=== PATIENT | female | born 1935 | race Caucasian/White ===

== ENCOUNTER 2016-10-26 10:58 | Observation (INO) | payer MEDICARE, OTHER ==
[2016-10-26] VITALS (9 sets, daily range): BP systolic 107–143; BP diastolic 57–89; PULSE 57–95; RESP 12–20; O2SAT 93–100
[~2016-10-26] VITALS: Ht 170.2 cm; Wt 99.1 kg
[~2016-10-26 10:58] MED LIST: ASPI-973 PO; DONE5TAB30 PO; FUR20 PO; LOSA25TA21 PO; MAGN400T39 PO; METO-272 PO; METO25TA99 PO; PANT40TA3 PO; POTA20TA16 PO; SIMV40TA5 PO
--- NOTE | 2016-10-26 10:59 | ED.REPORT ---
HPI-General Illness Date of Service Oct 26, 2016 ED Provider: Dr. Orantes Pt is an 81 year old female with a history of congestive heart failure, dementia , hypertension presents to the ED via EMS with concerns for weakness and general malaise. Patient has been living at home with granddaughter for the past few days who endorses that patient has an increase in generalized weakness with a reported productive cough 2 days and diarrhea 1 day. Today patient was sitting in chair when she reported to have "stopped breathing" patient's daughter called 911 and was able to arouse patient with a SLAP to the face and other stimuli. Patient currently complains of "just does not feel well" endorses a headache denies visual changes. Endorses nausea denies vomiting. Patient is not up-to-date on seasonal influenza vaccinations. Nursing Notes Stated Complaint: WEAKNESS Chief Complaint: Weakness Nursing Notes Reviewed: Yes Allergies: Coded Allergies: shellfish derived (Verified Allergy, Severe, 10/26/16) Penicillins (Verified Allergy, Unknown, 10/01/15) clarithromycin (Verified Allergy, Unknown, 10/01/15) codeine (Verified Allergy, Unknown, 10/01/15) iodine (Verified Allergy, Unknown, 10/01/15) Scheduled Aspirin (Aspirin) 81 Mg Tablet 81 MG PO DAILY Carvedilol (Carvedilol) 6.25 Mg Tablet 6.25 MG PO BID Donepezil (Donepezil) 5 Mg Tablet 5 MG PO HS Furosemide (Furosemide) 20 Mg Tab 20 MG PO DAILY Losartan Potassium (Losartan Potassium) 25 Mg Tablet 25 MG PO DAILY Magnesium Oxide (Magnesium) 250 Mg Tablet 250 MG PO HS Pantoprazole DR (Pantoprazole DR) 40 Mg Tablet.dr 40 MG PO DAILY Potassium Gluconate (Potassium) 99 Mg Tablet 99 MG PO DAILY Simvastatin (Simvastatin) 40 Mg Tablet 40 MG PO HS General Time Seen by MD: 10:59 Chief Complaint Weakness Hx Obtained From: Patient, EMS Arrived By: Ambulance Sudden in Onset?: Yes Symptom Duration: Since onset Similar Sx Previous: Yes Past Medical History Past Medical History Alzheimer's Hypertension Cardiomyopathy Lymphoma ? History of CVA Past Surgical History Bilateral knee replacement Bilateral hip replacement Smoking History Unknown if Ever Smoker Social History Alcohol Use: Denies alcohol use Other Social History: Lives in [facility] Ambulatory Status Independent Review of Systems Unable to Obtain ROS Mental status (patient lethargic expresses some difficulty in appropriately answering questions.) Full Review of Systems Constitutional: Reports: Fever (reported home fevers though no temperature taken), Denies: Chills Eyes: Denies: Blurred bilateral, Photophobia, Visual loss bilateral Respiratory: Reports: Non-productive cough, Shortness of breath, Wheezing, Denies: Dyspnea on exertion, Hemoptysis GI: Reports: Diarrhea, Nausea, Denies: Abdominal pain, Vomiting Neurologic: Denies: Abnormal movement, Bladder dysfunction, Bowel dysfunction, Change LOC, Confusion, Dizziness, Focal weakness, Headache Physical Exam General: Mild distress, well-developed, well-nourished, somewhat lethargic and slow to respond to questions HEENT: Normocephalic, atraumatic. External ears without defect. Pupils - patient has macular degeneration. Anicteric sclerae, moist conjunctivae, and no lid lag. Oropharynx free of erythema and cobble stoning with moist mucosa. Edentulous, upper bridge dentures in place. Neck: Supple with full range of motion. No jugular venous distension. Cardiovascular: Regular rate and rhythm with no murmurs, rubs, or gallops appreciated Pulmonary: Audible expiratory wheezes, upper anterior lung mulligan. No rhonchi Normal respiratory effort with no use of accessory muscles. Abdomen: Bowel tones present. Soft, nontender, nondistended. Extremities: No clubbing, cyanosis, edema, or lymphadenopathy appreciated. Skin: Normal temperature, normal turgor, and texture. Neurological: Cranial nerves grossly intact. Psychiatric: Normal mood and affect. Alert and oriented to person, place, and time, slow to respond to questions Vital Signs Vital Signs Date Time Temp Pulse Resp B/P Pulse Ox O2 Delivery O2 Flow Rate FiO2 10/26/16 14:30 74 14 123/89 100 Nasal Cannula 2 10/26/16 13:08 69 12 100 Nasal Cannula 2 10/26/16 12:30 63 15 107/57 99 Nasal Cannula 2 10/26/16 11:18 36.5 57 20 129/68 93 Room Air Initial VS: Reviewed Interpretation & Diagnostics X-RAY CHEST ONE VIEW, PORTABLE IMPRESSION: No acute cardiopulmonary disease. Dictated by: James Maciel M.D. on 10/26/2016 at 11:36 Lab Results Interpretation Result Diagram: 10/26/16 1100 10/26/16 1100 Test 10/26/16 11:00 10/26/16 11:19 White Blood Count 8.6th/mm3 (3.8-10.1) Red Blood Count 5.03mil/mm3 (3.90-5.20) Hemoglobin 13.8g/dL (12.0-15.6) Hematocrit 42.8% (35.0-46.0) Mean Corpuscular Volume 85.1fL (81-100) Mean Corpuscular Hemoglobin 27.4pg (27.0-35.0) Mean Corpuscular Hemoglobin Concent 32.2% (32.0-37.0) Red Cell Distribution Width 14.4% (12.3-15.4) Platelet Count 213bil/L (150-400) Neutrophils (%) (Auto) 72.1% (40-74) Lymphocytes (%) (Auto) 15.9% (14-46) Monocytes (%) (Auto) 9.5% (4-12) Eosinophils (%) (Auto) 2.0% (0-5) Basophils (%) (Auto) 0.3% (0-3) Sodium Level 138mEq/L (134-144) Potassium Level 3.7mEq/L (3.5-5.2) Chloride Level 99mEq/L (97-108) Carbon Dioxide Level 28mmol/L (18-29) Blood Urea Nitrogen 13mg/dL (8-27) Creatinine 1.46mg/dL (0.57-1.00) Estimat Glomerular Filtration Rate 49mL/min (>59) Glucose Level 149mg/dL (60-99) Calcium Level 8.6mg/dL (8.5-10.1) Total Bilirubin 0.6mg/dL (0.0-1.2) Aspartate Amino Transf (AST/SGOT) 11U/L (0-50) Alanine Aminotransferase (ALT/SGPT) 6U/L (0-32) Alkaline Phosphatase 84U/L (25-165) Troponin T < 0.010ug/L (0.0-0.011) Total Protein 6.3g/dL (6.4-8.4) Albumin 3.2g/dL (3.4-5.0) Procalcitonin 0.07ng/mL (See Comment) Urine Color Dark yellow (YELLOW) Urine Appearance Clear (CLEAR,HAZY) Urine pH 7.0 (5.0-8.0) Urine Specific [place] 1.026 (1.003-1.035) Urine Protein 30mg/dL (NEG,TRACE) Urine Glucose (UA) Negativemg/dL (NEGATIVE) Urine Ketones Negativemg/dL (NEGATIVE) Urine Occult Blood Negative (NEGATIVE) Urine Nitrite Negative (NEGATIVE) Urine Bilirubin Negative (NEGATIVE) Urine Urobilinogen Normalmg/dL (NORMAL) Urine Leukocyte Esterase Negative (NEGATIVE) Urine RBC 0-2/hpf (0-2) Urine WBC 0-5/hpf (0-5) Urine Epithelial Cells Moderate/hpf (NONE-MOD) Urine Crystals None seen (NONE SEEN) Urine Bacteria Few/hpf (NONE-FEW) Urine Hyaline Casts None/lpf (NONE) Urine Granular Casts None seen (NONE SEEN) Urine Waxy Casts None seen (NONE SEEN) Urine Red Blood Cell Casts None seen (NONE SEEN) Urine White Blood Cell Casts None seen (NONE SEEN) Urine Mucus None seen (None Seen) Urine Trichomonas None seen (NONE SEEN) Urine Yeast None (NONE SEEN) Urinalysis Comment None Urine Culture Reflexed Not indicated ECG Interpretation ECG Interpretation: Sinus rhythm, APC, left bundle branch block - consistent with previous EKG Interpreted by: ED physician (resident physician) Re-Eval/Medical Decision Med Decision/Clinical Course Attending note: 81-year-old female with congestive heart failure with known systolic dysfunction since after a syncopal episode while at rest. This is concerning for cardiogenic syncope. Patient will be admitted. Based on history obtained through patient's family as well as physical examination patient's current condition is most likely due to an episode of cardiogenic ectopy. Patient does have diagnosed congestive heart failure, EKG and EGD showed PAC. The story fits that patient was sitting in chair when she was reported to be apneic suffering from respiratory arrest. The medics reportedly found patient's blood pressure to be systolic 60 which resolved to normotension after IV fluid administration. EKG showed sinus rhythm with left bundle branch block which is seen on prior EKG from 2015. Though EKG did show atrial premature complex. Troponin negative. Patient does have audible wheezes and there was some concern of pneumonia, flu swab was negative. Chest x-ray read showed no acute cardiopulmonary process, though there does appear to be some degree of pulmonary edema. White blood cell count unremarkable. Pro-Pending at time of dictation. Patient requested to be admitted for observational status and cardiac monitoring. CODE STATUS discussed with family, patient's daughter who is POA endorses the patient is a DO NOT INTUBATE though it remains unclear at this point if patient is a DO NOT RESUSCITATE. She did produce documentation not in the form of a POLST that states patient wishes to not receive artificial nutrition or artificial hydration. Discharge & Departure Shift Change Sign-Out Patient Care Transferred: Yes Discussed Complaint(s): Yes Laboratory Evaluation: Lab evaluation discussed Imaging Studies: Imaging discussed Response to Therapy: Improved Primary Impression: Syncope Syncope type: unspecified Qualified Code: R55 - Syncope and collapse Discharge Condition All VS Reviewed: Yes Condition: Improved Referrals: NOPCP (PCP) Attending Statement The patient was seen and examined together with Dr. Victoria on 10/26/16 and I have added additional information to the note above. Simone Orantes DO Oct 26, 2016 10:59 ESTELA BHAKTA Oct 26, 2016 11:01 KRYSTYNA VICTORIA DO Oct 26, 2016 11:45
[2016-10-26] MEDS ORDERED: 0.9% Sodium Chloride 1,000 ML IV ONE (11:09)
[2016-10-26 11:17] LABS: BASOPHILS % (AUTO) 0.3 % (0-3); MONOCYTES % (AUTO) 9.5 % (4-12); Mean Corpuscular Hemoglobin 27.4 pg (27.0-35.0); Mean Corpuscular Volume 85.1 fL (81-100); NEUTROPHILS % (AUTO) 72.1 % (40-74); Platelet Count 213 bil/L (150-400)
[2016-10-26] MEDS ORDERED: CARV6.252 PO (11:32)
[2016-10-26] MEDS ORDERED: POTA99TA21 PO (11:32)
[2016-10-26] MEDS ORDERED: MAGN250T29 PO (11:32)
--- NOTE | 2016-10-26 11:38 | DRSVH ---
PROCEDURE: X-RAY CHEST ONE VIEW, PORTABLE ([id number]) INDICATIONS: 81 year-old female with syncope. TECHNIQUE: One view of the chest was acquired. COMPARISON: [facility], CR, XR CHEST 2V AP/PA AND LAT, 07/16/2016, 4:09 PM. [facility], CR, CHEST 1VW (PORTABLE), 08/29/2015, 22:34. [facility], , CHEST 2VW, 12/30/2009, 10:15. FINDINGS: Surgical changes and devices: None. Lungs and pleura: No pleural effusions or pneumothorax. Lungs are clear except for linear right ian g base scarring. Mediastinum: Mediastinal contours appear normal. Heart size is normal. There is aortic atheroscler osis. Bones and chest wall: No suspicious bony lesions. Overlying soft tissues appear unremarkable. IMPRESSION: No acute cardiopulmonary disease. Dictated by: James Maciel M.D. on 10/26/2016 at 11:36 Approved by: James Maciel M.D. on 10/26/2016 at 11:36
[2016-10-26 11:57] LABS: APPEARANCE,URINE CLEAR (CLEAR,HAZY); COLOR,URINE DARK YELLOW (YELLOW); OCCULT BLOOD,URINE NEGATIVE (NEGATIVE); UROBILINOGEN,URINE NORMAL (NORMAL)
[2016-10-26] MEDS ORDERED: Albuterol 2.5 mg/3 mL Inhalation Solution NEB ONE (12:10)
[2016-10-26] MEDS ORDERED: Alum-Mag Hydrox-Simeth 30 mL Suspension PO PRN (14:05)
[2016-10-26] MEDS ORDERED: Polyethylene Glycol (PEG) 17 Gm Powder PO PRN (14:05)
[2016-10-26] MEDS ORDERED: Ondansetron 2 mg/mL 2 mL Inj IVPUSH PRN (14:05)
[2016-10-26] MEDS ORDERED: Influenza (Adult) Vaccine 0.5 mL Syringe IM ONE (15:05)
[2016-10-26] MEDS: 0.9% Sodium Chloride 1,000 ML IV SCH (17:53)
--- NOTE | 2016-10-26 18:13 | PCM.HPMED ---
Subjective Date of Service Oct 26, 2016 Primary Provider: Admitting Physician: Robert Banegas MD Primary Care Physician: Irena Bach MD Attending Physician: Robert Banegas MD Admit Status: From the Emergency Department, 23-Hour Observation, Admit to Red Team Chief Complaint: Syncope/4h History of Present Illness: Carmita is an 81-year-old lady with past medical history of systolic CHF, Alzheimer dementia, hypertension, history of lymphoma was brought in by EMS for syncope. Patient has been having dry cough for the past 2 days with decreased by mouth intake. She was sitting in chair at home. Her usknwzfg-dd-qel saw her stopping breathing and fainting. She lowered her to the floor, shook her and slapped her and shew woke up . Episode of fainting lasted for 30 seconds. EMS arrived in 5 minutes, initial systolic blood pressure by EMS reportedly 60. IV fluids started and brought in She has history of systolic CHF on furosemide 20 mg daily, losartan 25 mg daily , carvedilol 6.5 mg twice a day. She had recent echocardiogram and was told by phone that her systolic function has improved from 25 to 55% . Tkvedkvc-ev-zqk states there was some medication dose adjustment but not sure what it was. Patient has an appointment to see her camp head counselor on November 24. Patient denies feeling lightheaded before fainting. Admits she had less by mouth intake for the last 2 days due to dry cough. Mlnsqyrf-yf-teu states patient has been having low diastolic blood pressure in the last few weeks. BP Numbers like 120/40. no Known history of aortic valve issue Denies fever ED course: Initial BP 107/57, HR 57, saturating 93% on room air, afebrile Labs are remarkable, creatinine 1.46 ,at baseline. Troponin negative, EKG unremarkable, pro-calcitonin negative, urine specific gravity 1.026, influenza negative Review of Systems: Comprehensive review of systems performed, pertinent positives and negatives included in history of present illness Allergies Coded Allergies: shellfish derived (Verified Allergy, Severe, 10/26/16) Penicillins (Verified Allergy, Unknown, 10/01/15) clarithromycin (Verified Allergy, Unknown, 10/01/15) codeine (Verified Allergy, Unknown, 10/01/15) iodine (Verified Allergy, Unknown, 10/01/15) Home Medications Potassium 99 mg by mouth daily Aspirin 81 mg by mouth daily Pantoprazole 40 mg by mouth daily Losartan 25 mg by mouth daily Coreg 6.5 mg by mouth twice daily Furosemide 20 mg by mouth daily Glipizide 5 mg by mouth daily Simvastatin 40 mg by mouth daily Magnesium 250 mg by mouth daily PMH systolic CHF, recent echo reportedly shows improvement of EF from 25 to 55% Alzheimer dementia, on donepezil hypertension, history of lymphoma in 2004 Surgical History Bilateral hip replacement Bilateral knee replacement Hysterectomy Appendectomy Family History Reviewed and unremarkable Lives with her son and ytpjetex-iz-rnd Social History Hx Alcohol Use: No Hx Substance Use: No Smoking Status: Unknown if Ever Smoker Exam Vital Signs Vital Sign - Last Date Time Temp Pulse Resp B/P Pulse Ox O2 Delivery O2 Flow Rate FiO2 10/26/16 15:18 88 10/26/16 14:50 36.2 20 111/78 99 Nasal Cannula 2.00 Exam Gen. patient is lying comfortably in hospital bed HEENT: Head is normocephalic atraumatic, Pupils equal and reactive, extraocular movements intact, dry tongue and buccal mucosa Lungs clear to auscultation bilaterally Heart regular rate and rhythm without murmurs gallops or rubs Abdomen soft nontender without hepatosplenomegaly Extremities pulses are present dorsalis pedis posterior tibialis and radial. tSkin is warm and dry there are no rashes, Psych alert and oriented to person place and time Neuro cranial nerves II through XII are grossly intact. Lymph: There is no lymphadenopathy appreciated in the cervical supra infraclavicular regions : no alcaraz Lab and Diagnostics Result Diagram: 10/26/16 1100 10/26/16 1100 X-Rays, CTs and MRIs CXR IMPRESSION: No acute cardiopulmonary disease. Dictated by: James Maciel M.D. on 10/26/2016 at 11:36 12-lead ECG NSR with PACs Assessment & Plan 81-year-old lady with past medical history of systolic CHF, Alzheimer dementia, hypertension, history of lymphoma was brought in by EMS for syncope. # Syncope,acute,poa -Likely due to hypotension due to multiple BP meds and poor oral intake due to URI. Initial systolic BP 60 as per EMS -We will give NS 60mL /h - will discontinue and discharge without Lasix given clinical signs of dehydration and reported recent improvement of systolic function. Patient may need to target a higher systolic blood pressures ,SBP goal 120-140 for now -Telemetry -Orthostatics -Troponin negative #History of systolic CHF -Continue home carvedilol, losartan, aspirin, simvastatin # Dementia, continue donepezil Discussed CODE STATUS with patient and POA, Full code Names her daughter- in-law as POA Patient admitted under observation status with expected length of stay < 2 midnights for severity of present symptoms, complexities of treatment plan and risk for adverse events Resuscitation Status: CPR: Attempt Resuscitation copies to: Irena Bach MD, Melaku MD Oct 26, 2016 18:13
--- NOTE | 2016-10-27 00:06 | NUR ---
respiratory sleeping soundly intermittently, o2 sat 99% on 2l nc. cough coarse and luggage maker of sputum. brp x 2 , urine missed hat in toilet.
[2016-10-27 00:10] VITALS: PULSE 75
[2016-10-27 01:02] VITALS: BP 142/74; PULSE 91; RESP 18; O2SAT 97
[2016-10-27 06:08] VITALS: BP 107/64; PULSE 79; RESP 16; O2SAT 100
[2016-10-27 06:27] LABS: BASOPHILS % (AUTO) 0.3 % (0-3); EOSINOPHILS % (AUTO) 3.8 % (0-5); MONOCYTES % (AUTO) 11.7 % (4-12); Mean Corpuscular Hemoglobin 28.5 pg (27.0-35.0); Mean Corpuscular Volume 87.2 fL (81-100); NEUTROPHILS % (AUTO) 71.3 % (40-74); Platelet Count 211 bil/L (150-400)
[2016-10-27] MEDS ORDERED: Pantoprazole 40 mg ER24 Tablet PO SCH (06:30)
[2016-10-27] MEDS ORDERED: POTASSIUM GLUCONATE 99 MG PO SCH (08:30)
[2016-10-27] MEDS: 0.9% Sodium Chloride 1,000 ML IV SCH (09:08)
[2016-10-27 10:28] VITALS: PULSE 75
--- NOTE | 2016-10-27 11:00 | PCM.DIMED ---
Discharge Instructions Date of Service Oct 27, 2016 Dates of Hospitalization Oct 26, 2016 at 14:35 Discharge Diagnosis Discharge Diagnosis # Syncope,acute,poa -Likely due to hypotension/dehydration due to multiple BP meds and poor oral intake due to URI. #History of systolic CHF # Dementia, continue donepezil Diet Low fat, Low Sodium, Heart Healthy Activity Limited until seen by PCP Call your provider Fever or Chills, Shortness of breath, Bleeding, Chest pain, Vomitting, Excessive diarrhea, Weakness (unilateral) Patient Instructions You were hospitalized due to syncope likely due to dehydration /hypotension due to poor oral intake due to URI and multiple BP medications. Your initial BP was low. I have stopped your lasix . Please take your other medications as usual.Please check your BP at home daily. I recommend target systolic blood pressure of 120-140.Please follow up with PCP in 1 week for further medications adjustments.Please follow up with your utility bill collection clerk on Nov 24 as appointed. Follow-up plan please follow up with PCP in 1 week. Follow-up Provider: Irena Bach MD Follow-up with PCP in: 1 week Robert Banegas MD Oct 27, 2016 11:00
--- NOTE | 2016-10-27 11:57 | NUR ---
Social Work Initial Assessment/Discharge D: EMR Reviewed. See initial assessment. Pt is an 81Y old female Siddhartha for Cardiogenic Syncope. Insurance is [employer] and [employer]. PCP is Irena Sandra. SW met with Pt at bedside, SW role explained. Pt reports she lives in [place] and is visiting her son and DIL, Albaro and Yulia Smith [phone]. Pt reports she uses a walker at baseline. Pt continues to drive. Pt denies HH/SNF History. Pt is medically stable and discharging back to the care of her son and DIL until she is able to travel back home to [place]. No discharge needs identified. Pt to travel via POV. A: Pt who is [place] [employer], lives alone in [place] P: Pt is medically stable and discharging back to the care of her son and DIL until she is able to travel back home to [place]. No discharge needs identified. Pt to travel via POV. RACHID Ascencio Addendum: 10/27/16 at 1203 by RIGOBERTO SAINZ Amended: Links added.
--- NOTE | 2016-10-27 12:33 | NUR ---
DISCHARGE Patient discharged at 1240, daughter will drive her home.IV removed intact, medications reviewed, and MD called in for clarification. Patient denies pain, nausea, and shortness of breath. Follow up appointments gone over and questions answered about follow up.
--- NOTE | 2016-10-27 14:29 | PCM.DC.MED ---
Discharge Summary Date of Service Oct 27, 2016 Dates of Hospitalization Date of Hospital Admission Oct 26, 2016 at 14:35 Date of Discharge: Oct 27, 2016 Providers: Admitting Physician: Robert Banegas MD Primary Care Physician: Irena Bach MD Attending Physician: Robert Banegas MD Diagnosis at Time of Discharge Diagnosis at Time of Discharge # Syncope,acute,poa -Likely due to hypotension/dehydration due to multiple BP meds and poor oral intake due to URI. #History of systolic CHF # Dementia, continue donepezil Consultations No legal consultant was involved on this case Procedures XRay, CTs & MRIs CXR IMPRESSION: No acute cardiopulmonary disease. Dictated by: James Maciel M.D. on 10/26/2016 at 11:36 ECG 12 Lead NSR with PACs Brief History Carmita is an 81-year-old lady with past medical history of systolic CHF, Alzheimer dementia, hypertension, history of lymphoma was brought in by EMS for syncope. Patient has been having dry cough for the past 2 days with decreased by mouth intake. She was sitting in chair at home. Her csgjetiv-mi-asb saw her stopping breathing and fainting. She lowered her to the floor, shook her and slapped her and shew woke up . Episode of fainting lasted for 30 seconds. EMS arrived in 5 minutes, initial systolic blood pressure by EMS reportedly 60. IV fluids started and brought in She has history of systolic CHF on furosemide 20 mg daily, losartan 25 mg daily , carvedilol 6.5 mg twice a day. She had recent echocardiogram and was told by phone that her systolic function has improved from 25 to 55% . [id number] states there was some medication dose adjustment but not sure what it was. Patient has an appointment to see her blankbook forwarder on November 24. Patient denies feeling lightheaded before fainting. Admits she had less by mouth intake for the last 2 days due to dry cough. Cnkkyvus-kz-itp states patient has been having low diastolic blood pressure in the last few weeks. BP Numbers like 120/40. no Known history of aortic valve issue Denies fever ED course: Initial BP 107/57, HR 57, saturating 93% on room air, afebrile Labs are remarkable, creatinine 1.46 ,at baseline. Troponin negative, EKG unremarkable, pro-calcitonin negative, urine specific gravity 1.026, influenza negative Hospital Course 81-year-old lady with past medical history of systolic CHF, Alzheimer dementia, hypertension, history of lymphoma was brought in by EMS for syncope. # Syncope,acute,poa -Likely due to hypotension due to multiple BP meds and poor oral intake due to URI. Initial systolic BP 60 as per EMS -Treated with NS 60mL /h. Patient monitored overnight. Systolic Blood pressure in 110's and 120s. I suspect she might not need 3 CHF/BP meds. - will discontinue and discharge without Lasix given clinical signs of dehydration and reported recent improvement of systolic function. Patient may need to target a higher systolic blood pressures ,SBP goal 120-140 for now . Discussed with son and ivedebjk-sb-uos at bedside and explained. -EKG unremarkable -Troponin negative #History of systolic CHF -Continue home carvedilol, losartan, aspirin, simvastatin -No sign of fluid overload. Stopped Lasix -She will follow with her blankbook forwarder on November 24. # Dementia, continue donepezil Discussed CODE STATUS with patient and POA, Full code Names her daughter- in-law as POA Condition on discharge stable Patient ambulated and no symptoms Exam Vital Signs (Last) Date Time Temp Pulse Resp B/P Pulse Ox O2 Delivery O2 Flow Rate FiO2 10/27/16 10:28 75 10/27/16 08:30 Supplement Oxygen 10/27/16 06:08 36.3 16 107/64 100 2.00 Exam Gen. patient is lying comfortably in hospital bed HEENT: Head is normocephalic atraumatic, Pupils equal and reactive, extraocular movements intact, dry tongue and buccal mucosa Lungs clear to auscultation bilaterally Heart regular rate and rhythm without murmurs gallops or rubs Abdomen soft nontender without hepatosplenomegaly Extremities pulses are present dorsalis pedis posterior tibialis and radial. Skin is warm and dry there are no rashes, Psych alert and oriented to person place and time Neuro cranial nerves II through XII are grossly intact. Lymph: There is no lymphadenopathy appreciated in the cervical supra infraclavicular regions : no alcaraz Test 10/26/16 11:00 10/26/16 11:19 10/27/16 05:45 Troponin T < 0.010ug/L (0.0-0.011) Procalcitonin 0.07ng/mL (See Comment) Urine Color Dark yellow (YELLOW) Urine Appearance Clear (CLEAR,HAZY) Urine pH 7.0 (5.0-8.0) Urine Specific [place] 1.026 (1.003-1.035) Urine Protein 30mg/dL (NEG,TRACE) Urine Glucose (UA) Negativemg/dL (NEGATIVE) Urine Ketones Negativemg/dL (NEGATIVE) Urine Occult Blood Negative (NEGATIVE) Urine Nitrite Negative (NEGATIVE) Urine Bilirubin Negative (NEGATIVE) Urine Urobilinogen Normalmg/dL (NORMAL) Urine Leukocyte Esterase Negative (NEGATIVE) Urine RBC 0-2/hpf (0-2) Urine WBC 0-5/hpf (0-5) Urine Epithelial Cells Moderate/hpf (NONE-MOD) Urine Crystals None seen (NONE SEEN) Urine Bacteria Few/hpf (NONE-FEW) Urine Hyaline Casts None/lpf (NONE) Urine Granular Casts None seen (NONE SEEN) Urine Waxy Casts None seen (NONE SEEN) Urine Red Blood Cell Casts None seen (NONE SEEN) Urine White Blood Cell Casts None seen (NONE SEEN) Urine Mucus None seen (None Seen) Urine Trichomonas None seen (NONE SEEN) Urine Yeast None (NONE SEEN) Urinalysis Comment None Urine Culture Reflexed Not indicated White Blood Count 6.5th/mm3 (3.8-10.1) Red Blood Count 4.53mil/mm3 (3.90-5.20) Hemoglobin 12.9g/dL (12.0-15.6) Hematocrit 39.5% (35.0-46.0) Mean Corpuscular Volume 87.2fL (81-100) Mean Corpuscular Hemoglobin 28.5pg (27.0-35.0) Mean Corpuscular Hemoglobin Concent 32.7% (32.0-37.0) Red Cell Distribution Width 14.6% (12.3-15.4) Platelet Count 211bil/L (150-400) Neutrophils (%) (Auto) 71.3% (40-74) Lymphocytes (%) (Auto) 12.7% (14-46) Monocytes (%) (Auto) 11.7% (4-12) Eosinophils (%) (Auto) 3.8% (0-5) Basophils (%) (Auto) 0.3% (0-3) Sodium Level 141mEq/L (134-144) Potassium Level 4.3mEq/L (3.5-5.2) Chloride Level 102mEq/L (97-108) Carbon Dioxide Level 30mmol/L (18-29) Blood Urea Nitrogen 14mg/dL (8-27) Creatinine 1.56mg/dL (0.57-1.00) Estimat Glomerular Filtration Rate 45mL/min (>59) Glucose Level 110mg/dL (60-99) Calcium Level 8.5mg/dL (8.5-10.1) Magnesium Level 2.0mg/dL (1.6-2.6) Total Bilirubin 0.3mg/dL (0.0-1.2) Aspartate Amino Transf (AST/SGOT) 9U/L (0-50) Alanine Aminotransferase (ALT/SGPT) 6U/L (0-32) Alkaline Phosphatase 76U/L (25-165) Total Protein 5.6g/dL (6.4-8.4) Albumin 3.1g/dL (3.4-5.0) Discharge Medications Discharge Medications Aspirin (Aspirin) 81 Mg Tablet 81 MG PO DAILY (Reported) Carvedilol (Carvedilol) 6.25 Mg Tablet 6.25 MG PO BID (Reported) Donepezil (Donepezil) 5 Mg Tablet 5 MG PO HS (Reported) Losartan Potassium (Losartan Potassium) 25 Mg Tablet 25 MG PO DAILY (Reported) Magnesium Oxide (Magnesium) 250 Mg Tablet 250 MG PO HS (Reported) Pantoprazole DR (Pantoprazole DR) 40 Mg Tablet.dr 40 MG PO DAILY (Reported) Potassium Gluconate (Potassium) 99 Mg Tablet 99 MG PO DAILY (Reported) Simvastatin (Simvastatin) 40 Mg Tablet 40 MG PO HS (Reported) Followup Plan Disposition: Home Follow-up plan please follow up with PCP in 1 week. Discharge Diet: Low fat, Low Sodium, Heart Healthy Discharge Activity: Limited until seen by PCP Patient Instructions You were hospitalized due to syncope likely due to dehydration /hypotension due to poor oral intake due to URI and multiple BP medications. Your initial BP was low. I have stopped your lasix . Please take your other medications as usual.Please check your BP at home daily. I recommend target systolic blood pressure of 120-140.Please follow up with PCP in 1 week for further medications adjustments.Please follow up with your blankbook forwarder on Nov 24 as appointed. Follow-up Provider: Irena Bach MD Follow-up with PCP in: 1 week copies to: Irena Bach MD, Melaku MD Oct 27, 2016 14:29
[2017-02-04] MEDS ORDERED: CIPR-231 PO (10:00)
== END 2016-10-27 12:40 | disposition home or self-care (01) ==
LOC: SED 10:58 → OSC 14:35
PROVIDERS: ADMIT Internal Medicine; ATTEND Internal Medicine
DX: R55 Syncope and collapse (principal); I50.20 Unspecified systolic (congestive) heart failure; G30.9 Alzheimer's disease, unspecified; F02.80 Dementia in other diseases classified elsewhere, unspecified severity, without behavioral disturbance, psychotic disturbance, mood disturbance, and anxiety; I11.0 Hypertensive heart disease with heart failure; R05 Cough; Z85.72 Personal history of non-Hodgkin lymphomas; Z23 Encounter for immunization; Z96.643 Presence of artificial hip joint, bilateral; Z96.653 Presence of artificial knee joint, bilateral
CPT/HCPCS: 36415; 71010; 80053; 81000; 82308; 83735; 84484; 85025; 87804; 90471; 94664; 96360; 99285; G0378; J7030; J7613; Q2039

== ENCOUNTER 2017-02-02 10:08 | Emergency (ER) | payer MEDICARE, OTHER ==
[~2017-02-02] VITALS: Ht 170.2 cm; Wt 77.3 kg
[2017-02-02 10:08] VITALS: BP 163/107; PULSE 61; RESP 14; O2SAT 95
[~2017-02-02 10:08] MED LIST changes: +CARV6.252 PO; -FUR20 PO; +MAGN250T29 PO; -MAGN400T39 PO; -METO-272 PO; -METO25TA99 PO; -POTA20TA16 PO; +POTA99TA21 PO
[2017-02-02 11:07] LABS: BASOPHILS % (AUTO) 0.3 % (0-3); EOSINOPHILS % (AUTO) 2.3 % (0-5); MONOCYTES % (AUTO) 6.1 % (4-12); Mean Corpuscular Volume 81.3 fL (81-100); NEUTROPHILS % (AUTO) 70.8 % (40-74); Platelet Count 270 bil/L (150-400)
[2017-02-02 11:18] VITALS: BP 147/69; PULSE 67; RESP 16; O2SAT 96
[2017-02-02 11:37] LABS: Lipase 46 U/L (13-60); Magnesium 1.5 mg/dL (1.6-2.6)
[2017-02-02 11:41] LABS: TROPONIN T < 0.010 ug/L (0.0-0.011)
[2017-02-02 12:25] LABS: APPEARANCE,URINE CLOUDY (CLEAR,HAZY); COLOR,URINE STRAW (YELLOW); OCCULT BLOOD,URINE TRACE (NEGATIVE); UROBILINOGEN,URINE NORMAL (NORMAL)
--- NOTE | 2017-02-02 12:52 | ED.REPORT ---
HPI-Syncope Date of Service Feb 02, 2017 ED Provider: Paulo Elizabeth MD Pt is an 81 year old female with a hx of HTN, Alzheimer's, and CHF presenting to the ED via EMS post syncopal episode lasting for 2-3 minutes just prior to arrival. The pt's granddaughter was washing the pt's hair while she sat on the toilet when she suddenly became limp and her granddaughter assisted her to the floor. Associated symptoms during the syncopal episode include decreased breathing, LE swelling. The pt's son reports that the pt was not complaining of any pain or SOB when she woke up. Denies abd pain, fever or recent infection. Nursing Notes Stated Complaint: SYNCOPE Chief Complaint: Neuro Symptoms/ Deficits Nursing Notes Reviewed: Yes ([facility] Electrochaea not reconciled) Allergies: Coded Allergies: shellfish derived (Verified Allergy, Severe, 02/02/17) Penicillins (Verified Allergy, Unknown, 02/02/17) clarithromycin (Verified Allergy, Unknown, 02/02/17) codeine (Verified Allergy, Unknown, 02/02/17) iodine (Verified Allergy, Unknown, 02/02/17) Scheduled Aspirin (Aspirin) 81 Mg Tablet 81 MG PO DAILY Carvedilol (Carvedilol) 6.25 Mg Tablet 6.25 MG PO BID Donepezil (Donepezil) 5 Mg Tablet 5 MG PO HS Losartan Potassium (Losartan Potassium) 25 Mg Tablet 25 MG PO DAILY Magnesium Oxide (Magnesium) 250 Mg Tablet 250 MG PO HS Pantoprazole DR (Pantoprazole DR) 40 Mg Tablet.dr 40 MG PO DAILY Potassium Chloride ER (Klor-Con 10) 10 Meq Tablet 10 MEQ PO DAILY Potassium Gluconate (Potassium) 99 Mg Tablet 99 MG PO DAILY Simvastatin (Simvastatin) 40 Mg Tablet 40 MG PO HS General Time Seen by Provider: 12:30 Chief Complaint Became unresponsive Syncope Description: First episode Hx Obtained From: Son, EMS Arrived By: Ambulance Onset Occurred: Just prior to arrival Symptom Duration: 1 - 15 minutes Severity: Current: No pain currently Severity: Maximum: No pain Recent Healthcare: No recent doctor visit, No recent hospitalization Similar Sx Previous: No Risk-Syncope CAD Risk Stratification Hypertension RF Statements: Risk factors reviewed Past Medical History Past Medical History Notes: Admit and workup for syncope 10/2016 -> Attributed to orthostatic hypotension/dehydration Past Medical History Alzheimer's Hypertension Cardiomyopathy, history of CHF (previous EF as low as 25%, but improved on subsequent echo to 55%) Lymphoma ? History of CVA Past Surgical History Bilateral knee replacement Bilateral hip replacement Smoking History Unknown if Ever Smoker Social History Patient is full code Alcohol Use: Denies alcohol use Other Social History: Lives in [place] Ambulatory Status Independent Review of Systems Constitutional: Denies: Fever Respiratory: Reports: Shortness of breath GI: Denies: Abdominal pain Musculoskeletal: Reports: Extremity swelling Neurologic: Reports: Change LOC, Syncope Complete sys rev & neg: except as marked. Physical Exam Initial Vital Signs Vital Signs (First) Date Time Temp Pulse Resp B/P Pulse Ox O2 Delivery O2 Flow Rate FiO2 02/02/17 10:08 36.6 61 14 163/107 95 Room Air Initial VS: Reviewed Head / Eyes: Atraumatic, Normocephalic, PERRL ENT: Mucous membranes moist, Conjunctiva normal, No scleral icterus Neck: Supple, Non-tender, Full range of motion Abdomen / GI: Soft, Non-tender, No guarding, No rebound, No distention Upper Extremities: Vascular intact, Neuro intact, No swelling, No tenderness Skin: Warm, Dry, No cyanosis Psychiatric: Mood/affect normal, Behavior normal, Normal thought content General/Constitutional: Awake, Alert, No acute distress, Well appearing, Well developed Mild dementia, can't give a good history. Uses walker at baseline. Respiratory / Chest: Breath sounds NL, Breath sounds = bilat, No respiratory distress, No rales, No rhonchi, No wheezing Cardiovascular: Heart rate NL, Regular rhythm, Heart sounds NL, No murmurs, Cap refill not delayed, Peripheral circulation NL Lower Extremity / Pelvis / MS: Neurologic intact, Vascular intact, No edema No findings of edema in legs, no findings of PE or DVT. Interpretation & Diagnostics Lab Results Interpretation Result Diagram: 02/02/17 1015 02/02/17 1015 Test 02/02/17 10:15 02/02/17 11:00 02/02/17 11:55 White Blood Count 8.7th/mm3 (3.8-10.1) Red Blood Count 5.66mil/mm3 (3.90-5.20) Hemoglobin 15.3g/dL (12.0-15.6) Hematocrit 46.0% (35.0-46.0) Mean Corpuscular Volume 81.3fL (81-100) Mean Corpuscular Hemoglobin 27.0pg (27.0-35.0) Mean Corpuscular Hemoglobin Concent 33.3% (32.0-37.0) Red Cell Distribution Width 14.6% (12.3-15.4) Platelet Count 270bil/L (150-400) Neutrophils (%) (Auto) 70.8% (40-74) Lymphocytes (%) (Auto) 20.0% (14-46) Monocytes (%) (Auto) 6.1% (4-12) Eosinophils (%) (Auto) 2.3% (0-5) Basophils (%) (Auto) 0.3% (0-3) Sodium Level 138mEq/L (134-144) Potassium Level 3.1mEq/L (3.5-5.2) Chloride Level 93mEq/L (97-108) Carbon Dioxide Level 25mmol/L (18-29) Blood Urea Nitrogen 13mg/dL (8-27) Creatinine 1.56mg/dL (0.57-1.00) Estimat Glomerular Filtration Rate 45mL/min (>59) Glucose Level 179mg/dL (60-99) Calcium Level 9.1mg/dL (8.5-10.1) Magnesium Level 1.5mg/dL (1.6-2.6) Total Bilirubin 0.6mg/dL (0.0-1.2) Aspartate Amino Transf (AST/SGOT) 16U/L (0-50) Alanine Aminotransferase (ALT/SGPT) 9U/L (0-32) Alkaline Phosphatase 84U/L (25-165) Troponin T < 0.010ug/L (0.0-0.011) Total Protein 7.2g/dL (6.4-8.4) Albumin 3.5g/dL (3.4-5.0) Lipase 46U/L (13-60) Prothrombin Time 10.7sec (8.1-12.5) Prothromb Time International Ratio 1.00ratio Urine Color Straw (YELLOW) Urine Appearance Cloudy (CLEAR,HAZY) Urine pH 7.0 (5.0-8.0) Urine Specific [place] 1.010 (1.003-1.035) Urine Protein Tracemg/dL (NEG,TRACE) Urine Glucose (UA) Negativemg/dL (NEGATIVE) Urine Ketones Negativemg/dL (NEGATIVE) Urine Occult Blood Trace (NEGATIVE) Urine Nitrite Negative (NEGATIVE) Urine Bilirubin Negative (NEGATIVE) Urine Urobilinogen Normalmg/dL (NORMAL) Urine Leukocyte Esterase Trace (NEGATIVE) Urine RBC 0-2/hpf (0-2) Urine WBC 0-5/hpf (0-5) Urine Epithelial Cells Occasional/hpf (NONE-MOD) Urine Crystals None seen (NONE SEEN) Urine Bacteria Many/hpf (NONE-FEW) Urine Hyaline Casts None/lpf (NONE) Urine Granular Casts None seen (NONE SEEN) Urine Waxy Casts None seen (NONE SEEN) Urine Red Blood Cell Casts None seen (NONE SEEN) Urine White Blood Cell Casts None seen (NONE SEEN) Urine Mucus Present (None Seen) Urine Trichomonas None seen (NONE SEEN) Urine Yeast None (NONE SEEN) Urinalysis Comment None Urine Culture Reflexed Indicated Lab Results Interpretation: CBC normal CMP mild hypokalemia, renal function unchanged from previous Troponin negative ECG Interpretation ECG Interpretation: LBBB. Unchanged from 10/26/2016. Time: 12:06 Interpreted by: ED physician Re-Eval/Medical Decision Med Decision/Clinical Course This is an 81-year-old female had a witnessed episode of syncope. The patient has moderate dementia and is unable to provide any history herself, history is provided by the family. Does have a prior history of cardiac disease and cardiomyopathy, although EF and recovered from 25% to 55% on past echo, and the patient had a recent admission for syncope just a little over a month ago-with no dangerous etiology determined. And at baseline, doing quite well, has had no symptoms or problems, and then had a brief episode of syncope while on the toilet. There was no seizure activity, no trauma sustained in the event, and the patient was recovering his EMS arrived-no dysrhythmic events were noted. Patient complains upon awakening, and is asymptomatic at present. The patient has normal vitals, she is not orthostatic, she clinically appears well. She has no heart murmur, and during her ED course had no dysrhythmic events. Lab work reveals mild hypokalemia, but was otherwise normal. The patient has no clinical or historical findings suggest pulmonary embolus. At this point the patient's presentation is nonspecific for definitive source of the syncope. Given the occurred on the toilet, vasovagal syncope is most likely etiology, but the patient's prior history of cardiomyopathy and heart disease/congestive heart failure or risk factors for dysrhythmic events. The patient initially has mild hypokalemia which is not present on previous episode of syncope when she was admitted weeks ago. She received oral potassium replacement and department. Options with the family regarding another observation admission for continued cardiac monitoring, versus discharge home- patient and the family would like for the patient to go home. I think this is reasonable. Live dysrhythmic cannot be excluded, but again discharge at this stage it is reasonable given the overall clinical scenario is still low probability for dysrhythmia. The patient is being discharged on low-dose potassium supplementation, with request to contact the primary care physician facilitate a recheck of her potassium in 1-2 weeks. Routine, and return precautions are both reviewed. Patient is discharged in good condition at baseline. Source of Hx: Old records Re-Evaluation/Progress : Time of Eval: 14:13 Patient Status: Condition improved Re-Evaluation/Progress Note: Discussed lab results and low potassium. Discussed plan for discharge. Pt understands and agrees with plan. Counseled Regarding: Diagnosis, Lab results, Need for follow-up, When/why to return to ED Discharge & Departure Impression: Primary Impression: Syncope Syncope type: unspecified Qualified Code: R55 - Syncope and collapse Additional Impression: Hypokalemia Disposition: Home Discharge Condition All VS Reviewed: Yes Condition: Improved Additional Instructions: 1. I suspected that she had a benign case of vasovagal syncope causing her to pass out today. This is the most common cause for passing out on the toilet. 2. As discussed, she does have risk factors for heart disease and of heart dysrhythmia - however she had no cardiac rhythm problems during her EMS for emergency department evaluation. She is just been admitted recently and had no arrhythmias during that evaluation as well. Therefore it is reasonable as discussed, to be discharged home. 3. Her blood work today did reveal that her potassium is just mildly on the low side. She should take a potassium supplement 10 mEq once a day for the next 1-2 weeks, and then have her potassium rechecked. Call to schedule an appointment with her regular doctor. 4. Coverage that she drink plenty of fluids to stay well hydrated. 5. Return if new or worsening symptoms. Referrals: Irena Bach MD (PCP) Scribe Attestation Portions of this note were transcribed by Julee Lucero. I, Dr. Elizabeth personally performed the history, physical exam and medical decision-making; I reviewed and confirmed the accuracy of the information in the transcribed note. Signed by: Brandi Hernández, 02/02/2017 at 1515. copies to: Irena Bach MD, Matthew F MD Feb 02, 2017 12:52 JULEE LUCERO Feb 02, 2017 13:31
[2017-02-02] MEDS ORDERED: Potassium Chloride 20 mEq/15 mL 15mL Oral Soln PO ONE (12:55)
[2017-02-02 13:34] VITALS: BP 157/78; PULSE 68; RESP 15; O2SAT 98
[2017-02-02 13:35] VITALS: BP 148/78; PULSE 71
[2017-02-02 13:36] VITALS: BP 156/81; PULSE 86
[2017-02-02] MEDS ORDERED: POTA10TA7 PO (15:11)
[2017-02-02 15:29] VITALS: BP 156/81; PULSE 86; RESP 15; O2SAT 98
[2017-02-04] MEDS ORDERED: CIPR-231 PO (10:00)
== END 2017-02-02 15:30 | disposition home or self-care (01) ==
LOC: SED 10:08
DX: R55 Syncope and collapse (principal); E87.6 Hypokalemia; I11.0 Hypertensive heart disease with heart failure; I50.9 Heart failure, unspecified; G30.9 Alzheimer's disease, unspecified; F02.80 Dementia in other diseases classified elsewhere, unspecified severity, without behavioral disturbance, psychotic disturbance, mood disturbance, and anxiety; Z88.0 Allergy status to penicillin; Z88.1 Allergy status to other antibiotic agents; Z88.5 Allergy status to narcotic agent; Z91.013 Allergy to seafood